=== PATIENT | male | born 1980 | race Caucasian/White ===

== ENCOUNTER 2023-09-01 13:03 | Emergency (ER) | payer SELFPAY ==
[~2023-09-01] VITALS: Ht 182.9 cm; Wt 117.9 kg
[2023-09-01 16:32] VITALS: BP 139/76; TEMP 99.1; O2SAT 96
== END 2023-09-01 16:49 | disposition home or self-care (01) ==
LOC: M ED 13:03
DX: S93.601A Unspecified sprain of right foot, initial encounter (principal); X50.0XXA Overexertion from strenuous movement or load, initial encounter; F10.10 Alcohol abuse, uncomplicated; Y92.9 Unspecified place or not applicable; Y93.89 Activity, other specified; Y99.9 Unspecified external cause status